=== PATIENT | male | born 1985 | race Asian ===

== ENCOUNTER 2019-08-10 17:13 | Emergency (ER) | payer BC ==
[~2019-08-10] VITALS: Ht 170.2 cm; Wt 83.9 kg
[2019-08-10 17:48] VITALS: TEMP 97.9
[2019-08-10 18:27] LABS: PLATELET COUNT 192 K/uL (142-355)
[2019-08-10 18:31] LABS: POTASSIUM 3.6 mmol/L (3.6-5.2)
[2019-08-10 19:45] VITALS: BP 139/91
== END 2019-08-10 20:03 | disposition home or self-care (01) ==
LOC: ED 17:13
PROVIDERS: Family Medicine
DX: M25.572 Pain in left ankle and joints of left foot (principal); Q66.89 Other specified congenital deformities of feet
CPT/HCPCS: 36415; 80053; 84550; 85027; 96372; 99283; J1885

== ENCOUNTER 2019-09-12 11:21 | Outpatient (CLI) | payer BC | END 2019-09-12 20:14 | disposition home or self-care (01) | LOC: MRI 11:21 | DX: M19.179 Post-traumatic osteoarthritis, unspecified ankle and foot (principal) ==